=== PATIENT | male | born 1950 | race Caucasian/White ===

== ENCOUNTER 2025-05-15 19:44 | Emergency (ER) | payer MEDICARE ==
[2025-05-15 21:28] VITALS: TEMP 97.1; O2SAT 96
[2025-05-15 22:09] VITALS: RESP 18
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
[2025-05-15 23:07] VITALS: BP 165/86; PULSE 61
--- NOTE | 2025-05-15 23:20 | XRAY ---
CLINICAL HISTORY: fall COMPARISON: No prior imaging available. TECHNIQUE: Axial non-contrast CT scan of the brain was performed from the skull base to the high parietal region. One of the following dose reduction techniques were utilized for this exam: Automated exposure control, adjustment of the mA and/or kV according to patient size, use of iterative reconstruction. FINDINGS: Brain Parenchyma: Normal attenuation of the cerebral hemispheres, cerebellum, and brainstem. No evidence of acute infarct, hemorrhage, or mass effect. Chronic lacunar infarcts seen in the capsuloganglionic region on the left side Age matched cerebral atrophic changes as evidenced by prominence of cortical sulci and gyral pattern. Periventricular white matter hypodensities in keeping with chronic microvascular ischemic changes Atheromatous calcifications of bilateral vertebral arteries Ventricular System: Ventricles are normal in size and configuration. No evidence of hydrocephalus or ventricular enlargement. Subarachnoid Spaces: No evidence of subarachnoid hemorrhage or extra-axial fluid collections. Cerebellum and Brainstem: No masses, lesions, or areas of abnormal density. Orbits: Normal appearance of the globes, optic nerves, and extraocular muscles. Extensive left periorbital soft tissue swelling and hematoma. No post-septal orbital extension identified. Sinuses: Mucosal thickening seen in right maxillary sinus. There is a curvilinear hyperdensity in the right maxillary sinus lying along the sinus wall, not freely layering or irregular, more suggestive of a chronic/incidental finding (such as calcification, ossified septation, or inspissated secretions) rather than acute traumatic hemorrhage. Mastoid Air Cells: Clear mastoid air cells. No evidence of mastoiditis. Skull: There is subtle depression with seen at the left nasal bone suspicious for fracture No acute calvarial bony injury IMPRESSION: 1. No acute intracranial hemorrhage, infarct, or mass effect. 2. Left periorbital hematoma, without evidence of post-septal orbital involvement. 3. Subtle depression at the left nasal bone, suspicious for fracture. 4. Chronic lacunar infarcts in the left capsuloganglionic region. 5. Age-related atrophy and chronic microvascular ischemic changes. Electronically Signed by: Dakota Marinelli MD. (05/15/2025 23:19:31 EDT)
--- NOTE | 2025-05-15 23:22 | XRAY ---
CLINICAL HISTORY: fall COMPARISON: No previous studies are available for comparison. TECHNIQUE: CT scan of the maxillofacial region was performed without the administration of intravenous contrast. Contiguous axial images were obtained from the skull base to the mandible. Coronal and sagittal reformatted images were also reviewed. One of the following dose reduction techniques was utilized for this exam. Automated exposure control, adjustment of the mA and/or kV according to patient size, and use of iterative reconstruction. FINDINGS: Bones: Maxilla: The maxillary bones are intact without evidence of acute fracture, lytic or sclerotic lesions. No signs of maxillary sinus wall fractures. Mandible: The mandibular bone is intact with normal cortices and trabecular patterns. There is no evidence of fracture, osteomyelitis, or neoplastic lesion. Zygomatic Bones: The zygomatic arches are intact bilaterally without evidence of fracture or deformity. Nasal Bones: Subtle depression seen at the left nasal bone suspicious for fracture Orbital Carrion: The orbital carrion are intact with no evidence of fracture or bony erosion. Orbits: The orbits are normal in size and shape. The globes are symmetric and well-positioned with no evidence of proptosis. The extraocular muscles appear normal in size and symmetry. Extensive left periorbital soft tissue swelling and hematoma consistent with clinical ?black eye.? No post-septal orbital extension identified. Nasal Cavity and Paranasal Sinuses: Nasal Cavity: The nasal cavity is clear with no evidence of masses, polyps, or septal deviation. Frontal Sinuses: The frontal sinuses are hypoplastic. Ethmoid Sinuses: The ethmoid air cells are clear with no mucosal thickening or fluid levels. Maxillary Sinuses: Mucosal thickening seen in right maxillary sinus. There is a curvilinear hyperdensity in the right maxillary sinus lying along the sinus wall, not freely layering or irregular. more suggestive of a chronic/incidental finding (such as calcification, ossified septation, or inspissated secretions) rather than acute traumatic hemorrhage. Sphenoid Sinuses: The sphenoid sinuses are clear with no abnormalities noted. Temporomandibular Joints (TMJ): The TMJs are symmetric and normal in appearance. The mandibular condyles are well-positioned within the glenoid fossae. There are no signs of dislocation, subluxation, or degenerative changes. The articular eminences are normal in contour. Soft tissues and glands: Parotid and submandibular glands are normal in size and echotexture. No focal soft tissue mass, collection, or inflammatory process. Bilateral non specific cervical and submandibular lymph nodes noted Dentition: No dental fracture, periapical abscess, or cystic lesion identified. IMPRESSION: 1. Extensive left periorbital hematoma with subcutaneous stranding, no post-septal orbital involvement. 2. Subtle depression seen at the left nasal bone without soft tissue. It is advised to check for the point of tenderness, and follow-up is advsied. 3. No orbital wall, maxillary, mandibular, or zygomatic fractures identified. 4. Right maxillary sinus mucosal thickening and curvilinear hyperdensity along the sinus wall, most consistent with chronic/incidental change (ossified septation, calcification, or inspissated secretions); not acute traumatic hemorrhage. 5. No additional acute facial bone injury. RECOMMENDATIONS: No further imaging is required at this time. Clinical correlation is recommended for any persistent symptoms. Electronically Signed by: Dakota Marinelli MD. (05/15/2025 23:20:29 EDT)
== END 2025-05-15 23:51 | disposition home or self-care (01) ==
LOC: ED 19:44
DX: S02.2XXA Fracture of nasal bones, initial encounter for closed fracture (principal); S00.12XA Contusion of left eyelid and periocular area, initial encounter; S01.112A Laceration without foreign body of left eyelid and periocular area, initial encounter; W01.0XXA Fall on same level from slipping, tripping and stumbling without subsequent striking against object, initial encounter; Y93.67 Activity, basketball; E11.9 Type 2 diabetes mellitus without complications; Z79.02 Long term (current) use of antithrombotics/antiplatelets; Z79.84 Long term (current) use of oral hypoglycemic drugs; Z79.4 Long term (current) use of insulin; Z79.899 Other long term (current) drug therapy